=== PATIENT | male | born 1995 | race Caucasian/White ===

== ENCOUNTER 2018-07-10 22:33 | Emergency (ER) | payer BC ==
[2018-07-10 22:39] VITALS: BP 138/102
--- NOTE | 2018-07-10 22:43 | EDPHY ---
H & P Stated Complaint: L QUAD INJ/HIT IN HOCKEY Source: Patient Exam Limitations: No limitations - Personal History Current Tetanus Diphtheria and Acellular Pertussis (TDAP): Yes - Medical/Surgical History Hx Asthma: No Hx Chronic Respiratory Disease: No Hx Diabetes: No Hx Cardiac Disease: No Hx Renal Disease: No Hx Cirrhosis: No Hx Alcoholism: No Hx HIV/AIDS: No Hx Splenectomy or Spleen Trauma: No Other PMH: WISDOM TEETH SX - Social History Smoking Status: Never smoked Time Seen by Provider: 07/10/18 22:39 HPI/ROS: HPI: This is a 22-year-old male who presents with Chief Complaint: L QUAD INJ/HIT IN HOCKEY Location: Left knee/quadriceps Quality: Injury Duration: Yesterday afternoon Signs and Symptoms: No bleeding, no radiation, no numbness, no weakness, no tingling, no incontinence, + decreased range of motion, + swelling, + pain, no fever Timing: Acute, gradually worsening Severity: Moderate Context: Patient is a student at [employer], presents with complaints of left superior knee and lower quadriceps injury that occurred yesterday afternoon while playing hockey. Patient reports that he was wearing his pads when he was need by another player directly into the left lower quadriceps and upper knee. He felt immediate, constant, moderate pain but was able to continue skating and plane the remaining 2 quarters of the game. 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 He reports that upon arriving home this evening he started to developed swelling in his left knee and increased pain in his left quadriceps. He reports that the pain is increased with flexion. He is ambulatory without any deficits. Denies radiation, weakness, paresthesias. He took 400 mg ibuprofen several hours ago with minimal relief. Modifying Factors: Ibuprofen with minimal relief Comment: ROS: A comprehensive 10 system review of systems is otherwise negative aside from elements mentioned in the history of present illness. MEDICAL/SURGICAL/SOCIAL HISTORY: Medical history: Generally healthy. Does not take any regular medications. Surgical history: [place] teeth removal Social history: Denies alcohol, tobacco, drug use. CONSTITUTIONAL: Slightly anxious, young adult male, polite and cooperative, awake and alert, no obvious distress HEENT: Atraumatic and normocephalic. NECK: supple EXTREMITIES: 2/2 pulses, strength 5/5, left KNEE: [id number] suprapatellar effusion, no medial and lateral joint line tenderness, full extension to 180, flexion decreased to 90 with increased pain. No pain with varus and valgus exam. No pain with anterior drawer or posterior drawer test. Extensor mechanism intact. Tenderness to palpation at the patellar quadriceps tendon junction. good light touch sensation. no deformities, no clubbing, no cyanosis or edema. NEUROLOGICAL: no focal neuro deficits. GCS 15. Light touch sensation intact. SKIN: Warm and dry, no erythema. no rash. Good capillary refill. (Frida Go) Constitutional: Initial Vital Signs Temperature (C) 36.8 C 07/10/18 22:36 Heart Rate 84 07/10/18 22:36 Respiratory Rate 16 07/10/18 22:36 Blood Pressure 138/102 H 07/10/18 22:36 O2 Sat (%) 97 07/10/18 22:36 O2 Delivery Mode Room Air Allergies/Adverse Reactions: No Known Allergies Allergy (Unverified 07/10/18 22:36) Home Medications: Medication Instructions Recorded NK [No Known Home Meds] 07/10/18 Medical Decision Making - Diagnostics Imaging Results: Imaging Impressions Knee X-Ray 07/10/18 22:43 Impression: 1. Moderate effusion suprapatellar bursa. 2. No underlying osseous abnormality seen. If symptoms persist, consider MRI at some point to evaluate for possible meniscal or ligamentous type injury. Procedures: Procedure: Splint placement. A left knee immobilizer was applied by the Emergency Room veterinary assistant technician. After application of the splint I returned and re-examined the patient. The splint was adequately immobilizing the joint and distal to the splint the patient's circulation and sensation was intact. (Frida Go) ED Course/Re-evaluation: Patient given another 200 mg of ibuprofen and p.o. Flexeril 10 mg. Ice pack applied and left knee x-ray ordered. I suspect mild knee effusion with patello-quadriceps tendonitis with quadriceps contusion. Left knee x-ray my read via PAC shows effusion but no fracture, dislocation Placed in knee immobilizer, crutches, orthopedic follow-up as needed No signs of neurovascular compromise/tenting of skin/compartment syndrome/ extremities and joints examined above and below area of concern and are neurovascularly intact. This patient was seen under the supervision of my secondary supervising physician. I evaluated care for this patient independently. Discussed this patient with Dr. Adame who did not see the patient. (Frida Go) PHYSICIAN DOCUMENTATION: The patient was evaluated and managed by the Physician Crutch Maker. My co- signature indicates that I have reviewed this chart and I agree with the findings and plan of care as documented. I am the secondary supervising physician. (Alejandra Adame) Differential Diagnosis: Knee injury while [] including but not limited to fracture, ACL injury, contusion, muscular strain, and meniscus injury. (Frida Go) - Data Points Medications Given: Discontinued Medications Cyclobenzaprine HCl (Flexeril) 10 mg PO EDNOW ONE Stop: 07/10/18 22:45 Last Admin: 07/10/18 22:52 Dose: 10 mg Ibuprofen (Motrin) 800 mg PO EDNOW ONE Stop: 07/10/18 22:45 Last Admin: 07/10/18 22:52 Dose: 200 mg Departure - Departure Disposition: Home, Routine, Self-Care Clinical Impression: Strain of left quadriceps muscle, fascia and tendon, initial encounter, Strain of quadriceps tendon, Prepatellar effusion of left knee Condition: Good Instructions: Muscle Strain (ED), Swollen Knee Joint (ED), Tendinitis (ED), Knee Immobilizer (ED) Additional Instructions: Wear the knee immobilizer while out of bed until pain free or seen by Orthopedics. Use crutches to aid ambulation. Take Tylenol 650 mg every 4 hours and/or Ibuprofen 600 mg every 8 hours with food as needed for pain. Apply ice for 30 minutes at a time; 2-3 times per day for the next 1-2 days. Follow up with Orthopedics in 7-10 days if symptoms persist at which time they will evaluate and recommend with you if conservative management versus MRI versus joint aspiration is indicated. The x-rays obtained in the emergency department today demonstrate no evidence of an obvious fracture but does show swollen knee joint. Referrals: Jitendra Perrin MD [Medical Doctor] - As per Instructions Stand Alone Forms: Work Excuse
[2018-07-10] MEDS ORDERED: IBUPROFEN 800 MG TAB PO ONE (22:44)
[2018-07-10] MEDS ORDERED: CYCLOBENZAPRINE 10 MG TAB PO ONE (22:44)
[2018-07-10] MEDS ORDERED: IBUPROFEN 200 MG TAB PO ONE (22:51)
== END 2018-07-10 23:26 | disposition home or self-care (01) ==
DX: S76.112A Strain of left quadriceps muscle, fascia and tendon, initial encounter (principal); M25.462 Effusion, left knee; W21.210A Struck by ice hockey stick, initial encounter; Y93.22 Activity, ice hockey
CPT/HCPCS: L1830